=== PATIENT | female | born 1955 | race Caucasian/White ===

== ENCOUNTER 2023-09-09 07:18 | Outpatient (OUT) | payer MEDICARE, SELFPAY | END 2023-09-09 07:19 | disposition home or self-care (01) | LOC: PST 07:19 | PROVIDERS: Visit Provider Orthopaedic Surgery | DX: Z01.818 Encounter for other preprocedural examination (principal); S52.509A Unspecified fracture of the lower end of unspecified radius, initial encounter for closed fracture ==

== ENCOUNTER 2023-09-09 12:15 | Day surgery (SDC) | payer MEDICARE, SELFPAY ==
[2023-09-09] VITALS (11 sets, daily range): BP systolic 98–135; BP diastolic 50–79; PULSE 70–98; RESP 14–21; TEMP 36.5–36.8; O2SAT 92–100; BMI 22.1
[2023-09-09] MEDS: LACTATED RINGER'S SOLUTION 1,000 ML 50 ML IV (13:12)
--- NOTE | 2023-09-09 13:45 | PC.NURSE ---
Axillary block started at 1324 and completed at 1334; done by Dr. Lopez and tolerated well; states fingers are numb after block completed
--- NOTE | 2023-09-09 13:50 | PC.NURSE ---
Right fingers pink and warm with immediate capillary refill; has normal sensation in fingers; splint to right upper extremity intact
[2023-09-09] MEDS: CEFAZOLIN SODIUM/DEXTROSE,ISO 2 GM/50 ML PIGGYBACK IV (14:16)
[2023-09-09] MEDS: LACTATED RINGER'S SOLUTION 1,000 ML 1000 ML IV (15:10)
--- NOTE | 2023-09-09 16:00 | FL_ITS ---
[address] [address] Patient Name: JAK HIGHTOWER MRN: [id number] date: 1955 Sex: F [facility] Current Patient Location: Accession/Order Number: [id number] Exam Date: 09/09/2023 14:00 Report Date: 09/10/2023 10:56 At the request of: AVTAR FARRAR Procedure: FL fluoroscopy <1hr NON-READ EXAM: FL fluoroscopy <1hr NON-READ HISTORY: RT FOREARM ORIF TECHNIQUE: FINDINGS: Please see Operative Report. Electronically authenticated by: RADIOLOGIST NO Date: 09/10/2023 10:56
--- NOTE | 2023-09-09 16:25 | PM.ORPRC ---
Procedure Note Date of procedure: 09/09/23 Pre-op diagnosis: Right distal radius fracture Post-op diagnosis: same as pre-op Procedure: Procedure: 1. Open reduction internal fixation right distal radius fracture Detailed Description of Procedure: After informed consent was obtained the patient brought to the operating room where general anesthetic was administered. Preoperatively regional block was placed. A well-padded proximal arm tourniquet was placed on the right arm was prepped and draped in usual sterile fashion. The arm was elevated, exsanguinated, and the tourniquet was inflated to 200 mmHg. A 6 cm incision made overlying the flexor carpi radialis tendon overlying the distal radius. Blunt dissection was carried down through soft tissue. The flexor carpi radialis tendon was retracted ulnarly along with the flexor pollicis longus muscle and tendon. Pronator quadratus was incised in an L-shaped fashion off of the bone. Distal radius fracture was identified at this point and found to be extra-articular and comminuted. Additionally this was a fracture through a previously operated on wrist at an outside institution that it healed in a malunited position. Review of x-rays showed since her fracture and healed on the lateral view she had apex volar angulation of 30 degrees from the neutral position. Using a combination of traction and manipulation and reduction was performed and appropriate reduction was confirmed under x-ray. A Synthes by column distal radius plate was then placed and provisionally held into place with K wires. This was adjusted until the appropriate position was achieved under multiple fluoroscopy views. The plate was then first fixed with a 2.7 bicortical nonlocking screw in the oblong hole in the shaft. Holding the distal fragments reduced a total of 5 unicortical 2.4 mm locking and nonlocking screws were placed at the distal fragments followed by an additional 2 screws placed in the shaft in a bicortical locking fashion. Initially the nonlocking screws were placed distally in order to aid with orthodoxy of the volar tilt within an acceptable level. Final x-rays in multiple planes revealed a reduced distal radius fracture with appropriate implant placement and lengths. Wound was irrigated. Pronator quadratus was repaired with an 0 Vicryl suture. Skin was closed with observable suture in layers. Well-padded dressing was placed followed by a fiberglass volar splint. Tourniquet was deflated. Patient was awakened and brought to the recovery room in stable condition. There are no intraoperative or immediate postoperative complications. Anesthesia: regional and General-LMA Surgeon: Mohsen Ozuna Estimated blood loss (mL): 5 Condition: stable Disposition: PACU
== END 2023-09-09 17:14 | disposition home or self-care (01) ==
PROVIDERS: Visit Provider Orthopaedic Surgery
PROC: (CPT 25607; principal; 2023-09-09 13:40)
DX: S52.551A Other extraarticular fracture of lower end of right radius, initial encounter for closed fracture (principal); Z95.0 Presence of cardiac pacemaker; R56.9 Unspecified convulsions; F41.9 Anxiety disorder, unspecified; F32.A Depression, unspecified; W19.XXXA Unspecified fall, initial encounter
CPT/HCPCS: 25607; 64417; 76000; C1713; J0690; J1100; J1885; J2250; J2371; J2405; J2704; J2795